=== PATIENT | female | born 1965 | race Caucasian/White ===

== ENCOUNTER 2021-01-17 22:12 | Emergency (ER) | payer OTHER, SELFPAY ==
[2021-01-17 22:44] VITALS: BP 154/99; PULSE 91; RESP 18; TEMP 36.7; O2SAT 98; BMI 32.9
--- NOTE | 2021-01-17 22:53 | CT_ITS ---
PROCEDURE INFORMATION: Exam: CT Thoracic Spine Without Contrast Exam date and time: 01/17/21 10:53 PM Age: 55 years old Clinical indication: Patient HX: Numbness and tingling down left leg, no known injury TECHNIQUE: Imaging protocol: Computed tomography images of the thoracic spine without contrast. Radiation optimization: All CT scans at this facility use at least one of these dose optimization techniques: automated exposure control; mA and/or kV adjustment per patient size (includes targeted exams where dose is matched to clinical indication); or iterative reconstruction. COMPARISON: No relevant prior studies available. FINDINGS: Vertebrae: No acute fracture. Normal alignment. Discs/Spinal canal/Neural foramina: No significant disc protrusion. No severe spinal canal stenosis. No significant neural foraminal narrowing. Soft tissues: Unremarkable. IMPRESSION: Unremarkable CT Spine.
--- NOTE | 2021-01-17 22:53 | CT_ITS ---
PROCEDURE INFORMATION: Exam: CT Lumbar Spine Without Contrast Exam date and time: 01/17/21 10:53 PM Age: 55 years old Clinical indication: Patient HX: Numbness and tingling down left leg, no known injury TECHNIQUE: Imaging protocol: Computed tomography images of the lumbar spine without contrast. Radiation optimization: All CT scans at this facility use at least one of these dose optimization techniques: automated exposure control; mA and/or kV adjustment per patient size (includes targeted exams where dose is matched to clinical indication); or iterative reconstruction. COMPARISON: CT THORACIC SPINE WO CON 01/17/21 11:21 PM FINDINGS: Vertebrae: No acute fracture. Normal alignment. L1-L2: No significant disc protrusion. No severe spinal canal stenosis. No significant neural foraminal narrowing. L2-L3: No significant disc protrusion. No severe spinal canal stenosis. No significant neural foraminal narrowing. L3-L4: No significant disc protrusion. No severe spinal canal stenosis. No significant neural foraminal narrowing. L4-L5: No significant disc protrusion. No severe spinal canal stenosis. No significant neural foraminal narrowing. L5-S1: No significant disc protrusion. No severe spinal canal stenosis. No significant neural foraminal narrowing. Soft tissues: Unremarkable. IMPRESSION: Unremarkable spine.
[2021-01-17 23:17] LABS: Basophils # 0.1 K/mm3 (0-0.2); Basophils % 1.3 % (0.1-2.0); Eosinophils # 0.2 K/mm3 (0.0-0.4); Eosinophils % 2.3 % (0.1-12.0); Hematocrit 38.4 % (37.0-47.0); Hemoglobin 13.1 g/dL (12.2-16.2); Lymphocytes # 1.8 K/mm3 (0.7-4.5); Lymphocytes % 24.2 % (10-50); Mean Corpuscular HGB Conc 34.2 g/dL (31.8-35.4); Mean Corpuscular Hemoglobin 30.8 pg (27.0-31.2); Mean Corpuscular Volume 90.2 fl (81-99); Mean Platelet Volume 7.2 fl (7.4-10.4); Monocytes # 0.2 K/mm3 (0.1-1.0); Monocytes % 3.2 % (1.7-9.3); Neutrophils % 68.9 % (37.0-80.0); Platelet Count 328 K/mm3 (142-424); Red Blood Count 4.26 M/mm3 (4.20-5.40); Red Cell Distribution Width 13.5 % (11.5-17.5); White Blood Count 7.2 K/mm3 (4.8-10.8)
[2021-01-17 23:24] LABS: Alanine Aminotransferase 36 U/L (12-78); Albumin Level 4.7 g/dl (3.5-5.0); Albumin/Globulin Ratio 1.6 (1.1-1.8); Alkaline Phosphatase 89 U/L (38-126); Anion Gap 13.9 mEq/L (5-15); Aspartate Amino Transferase 26 U/L (14-36); Bilirubin,Total 0.3 mg/dl (0.2-1.3); Blood Urea Nitrogen 19 mg/dl (7-17); Calcium 9.3 mg/dl (8.4-10.2); Carbon Dioxide 28 mmol/L (22.0-30.0); Chloride 105 mmol/L (98-107); Creatinine Clearance Estimated 118 mL/min (50-200); Estimated Glomerular Filt Rate 87 ml/min (>60); GFR (African American) 106 ML/MIN (>60); Globulin 2.9 g/dL (1.3-3.2); Glucose 73 mg/dl (74-100); Potassium 3.9 mmoL/L (3.5-5.1); Sodium 143 mmol/L (136-145); Total Protein,Serum 7.6 g/dl (6.3-8.2)
--- NOTE | 2021-01-18 00:20 | HMH.EDBACK ---
ED Disposition Clinical Impression: Lumbar radiculopathy Disposition: Home, Self-Care Condition on Discharge: Good Instructions: DI for Back Pain With Sciatica Additional Instructions: use meds and see pcp for fahad neil Prescriptions: predniSONE [Prednisone 20mg Tab] 20 mg PO BID #10 tab Transmission Status: Pending to [facility] Ketorolac Tromethamine [Toradol 10mg tablet] 10 mg PO Q6HP PRN #8 tab MDD 40mg/day PRN Reason: Moderate To Severe Pain Transmission Status: Pending to [facility] Referrals: Provider,Referral, [Primary Care Provider] - - Critical Care Critical Care Time: No Attestation: On 01/17/21, the high probability of a clinically significant, sudden or life threatening deterioration of the following system(s) required my full and direct attention, intervention and personal management. The time I documented below is in addition to time spent performing reported procedures but includes the following listed in this critical care notation. Medical Decision Making - Medical Records Medical records reviewed: Yes: I reviewed the patient's medical records. - Marck Inquiry Pt receiving controlled substance: No Vital Signs: 01/17/21 22:44 Temperature 98.0 F Temperature Source Oral Pulse Rate [Right Brachial] 91 H Respiratory Rate 18 Blood Pressure [Right Arm] 154/99 H Blood Pressure Mean [Right Arm] 117 Blood Pressure Source [Right Arm] Automatic Cuff Blood Pressure Position [Right Arm] Sitting 02 Sat by Pulse Oximetry 98 Oxygen Delivery Method Room Air - Lab Data Lab results reviewed: Yes: I reviewed the patient's lab results. Lab Results 01/17/21 23:05: WBC 7.2, RBC 4.26, Hgb 13.1, Hct 38.4, MCV 90.2, MCH 30.8, MCHC 34.2, RDW 13.5, Plt Count 328, MPV 7.2 L, Neut % (Auto) 68.9, Lymph % (Auto) 24.2, [place] % (Auto) 3.2, Eos % (Auto) 2.3, Baso % (Auto) 1.3, Neut # (Auto) 5.0, Lymph # (Auto) 1.8, [place] # (Auto) 0.2, Eos # (Auto) 0.2, Baso # (Auto) 0.1 01/17/21 23:05: Sodium 143, Potassium 3.9, Chloride 105, Carbon Dioxide 28, Anion Gap 13.9, BUN 19 H, Creatinine 0.70, Estimated Creat Clear 118, Estimated GFR 87, Est GFR ( Amer) 106, Glucose 73 L, Calcium 9.3, Total Bilirubin 0.3, AST 26, ALT 36, Alkaline Phosphatase 89, Total Protein 7.6, Albumin 4.7, Globulin 2.9, Albumin/Globulin Ratio 1.6 Result diagrams: 01/17/21 23:05 01/17/21 23:05 - CT Data CT Scan: T-Spine, L-Spine Time Received: 00:[address] Reviewed: Yes: I have viewed the radiologist's interpretation Preliminary Findings: Normal/NAD, No Fracture Seen Medical Decision Narrative: has lt lumbar radicular pain and will start meds and refer to pcp Back Pain HPI - General Chief Complaint: Back Pain/Injury Stated Complaint: back pain Time Seen by Provider: 01/18/21 00:00 Mode of Arrival: Family Vehicle Source of Information: Patient, Medical Record Limitations: No Limitations Description of Symptoms (Recalled from ER Triage Doc. by RN): left lateral lumbar pain, radiating into left hip and down through left leg. patient states its been going on for a couple of days and progressively worsening despiite tylenol and motrin admin. vss. further states leg is tingling in that leg. - History of Present Illness HPI Narrative: lt lumbar pain rad to lt leg with no fever/rash or trauma over the last few days - no cauda equina sx - MD Complaint: back pain Onset (ago): day(s) Similar Symptoms Previously: Yes Location: lumbar spine Severity: moderate Radiation: left leg Associated symptoms: denies other symptoms - Related Data Previous Rx's Medication Instructions Recorded Ketorolac Tromethamine [Toradol 10 mg PO Q6HP PRN #8 tab MDD 01/18/21 10mg tablet] 40mg/day predniSONE [Prednisone 20mg 20 mg PO BID #10 tab 01/18/21 Tab] Allergies Allergy/AdvReac Type Severity Reaction Status Date / Time No Known Allergies Allergy Verified 01/17/21 22:52 [facility] History
[2021-01-18 00:47] VITALS: BP 133/83; PULSE 86; RESP 18; TEMP 36.7; O2SAT 98
== END 2021-01-18 01:02 | disposition home or self-care (01) ==
PROVIDERS: Emergency Provider Emergency Medicine
DX: M54.16 Radiculopathy, lumbar region (principal)
CPT/HCPCS: 72128; 72131; 80053; 85025; 96374; 96375; 99282; 99283

== ENCOUNTER 2022-05-06 21:51 | Emergency (ER) | payer OTHER, SELFPAY ==
[2022-05-06 21:52] VITALS: BP 139/53; PULSE 96; RESP 20; TEMP 36.6; O2SAT 99; BMI 32.9
--- NOTE | 2022-05-06 21:56 | ECG_ITS ---
APPROVED REPORT Exam: Resting ECG HR:89 bpm ECG Measurements Heart Rate 89 AXES MD 146 P 64 QRSd 75 QRS 46 QT 379 T -3 QTc 426 Conclusion SINUS RHYTHM POSSIBLE RIGHT VENTRICULAR CONDUCTION DELAY [RSR (QR) IN V1/V2] Late R wave progression BORDERLINE ECG UNCONFIRMED REPORT Electronically signed by : Emmanuel Frankel MD 05/07/2022 12:13:46
--- NOTE | 2022-05-06 21:58 | XR_ITS ---
PROCEDURE INFORMATION: Exam: XR Chest Exam date and time: 05/06/2022 10:17 PM Age: 57 years old Clinical indication: Sternal or substernal pain; Additional info: Chest pain TECHNIQUE: Imaging protocol: Radiologic exam of the chest. Views: 1 view. COMPARISON: CT THORACIC SPINE WO CON 01/17/2021 11:21 PM FINDINGS: Lungs: Posterior segment right lower lobe infiltrate. Lingular infiltrate. Pleural spaces: Unremarkable. No pleural effusion. No pneumothorax. Heart/Mediastinum: Unremarkable. No cardiomegaly. Bones/joints: Unremarkable. IMPRESSION: 1. Posterior segment right lower lobe infiltrate. 2. Lingular infiltrate.
--- NOTE | 2022-05-06 22:07 | PC.NURSE ---
RAD at for CXR
--- NOTE | 2022-05-06 22:07 | HMH.EDGENADL ---
Discharge Plan Disposition Patient Disposition: Home, Self-Care Condition: Good Prescriptions Prescriptions: New amoxicillin-pot clavulanate 875-125 mg tablet 1 tab PO BID 7 Days Qty: 14 0RF doxycycline hyclate 100 mg tablet 100 mg PO BID 7 Days Qty: 14 0RF Referrals Follow up/Referrals: Provider,Referral, [Primary Care Provider] - See instructions Clinical Impressions Clinical Impression: Pneumonia Instructions Patient Instructions: DI for Pneumonia -- Adult Discharge ED Provider: Crow Gonzalez General Adult HPI General Chief complaint: PAIN Stated complaint: SOA AND BACK PAIN Time Seen by Provider: 05/06/22 21:51 Mode of Arrival: Ambulatory Limitations: No Limitations Description of Symptoms (Recalled from ER Triage Doc. by RN): Pt states she has been sick for a few days w/ productive cough, soa, and pain on inspiration. She says sputum is green in color. She does not appear in acute distress and O2 sat is 99% on room air. She denies fevers, N/V/D, chest pain, or weakness. History of Present Illness HPI narrative: Patient is a 57-year-old female with no pertinent past medical history who presents with concern for shortness of breath, chest/back pain. She says that for the last couple of days she has been sick . She says that she has had a productive cough which is abnormal for her. She is a smoker but has never been diagnosed with COPD. She states that every time she takes a deep breath she has pain on the left posterior side of her chest wall. The sputum is green. She says that the pain is there now constantly so she went to come in for evaluation. No nausea or vomiting. No diaphoresis. She says that she has had a cough during this time as well. She says that she does have a little bit of abdominal pain particularly in her epigastrium. Related Data Previous Rx's Medication Instructions Recorded amoxicillin 875 mg-potassium 1 tab PO BID 7 days #14 tabs 05/06/22 clavulanate 125 mg tablet doxycycline hyclate 100 mg tablet 100 mg PO BID 7 days #14 tabs 05/06/22 Allergies Allergy/AdvReac Type Severity Reaction Status Date / Time No Known Allergies Allergy Verified 01/17/21 22:52 PFSH PFSH Social History Smoking Status: Current every day smoker alcohol intake: current current occupational status: other Travel in the last 8 weeks: None ROS Obtained: Yes All systems reviewed & no additional complaints except as documented A 14 point review system was obtained and otherwise negative except per HPI Physical Exam General General appearance: alert and in no apparent distress Head Head exam: atraumatic, normocephalic and normal inspection Eye Eye exam: Present normal appearance, PERRL and EOMI ENT ENT exam: Present normal exam, normal oropharynx, mucous membranes moist, TM's normal bilaterally and normal external ear exam Neck Neck exam: Present normal inspection, full ROM and trachea midline; Absent meningismus or lymphadenopathy Chest Chest inspection: Present normal inspection and symmetric chest wall rise; Absent tenderness Respiratory Respiratory exam: Present normal lung sounds bilaterally; Absent respiratory distress Cardiovascular Cardiovascular exam: Present regular rate and normal rhythm; Absent JVD Abdominal Exam Abdominal exam: Present soft and normal bowel sounds; Absent distention, tenderness or guarding Extremities Exam Extremities exam: Present normal inspection, full ROM and normal capillary refill; Absent calf tenderness Back Exam Back exam: Present normal inspection; Absent tenderness Neurological Exam Neurological exam: Present alert and oriented X3 Psychiatric Psychiatric exam: Present normal affect and normal mood Skin Skin exam: Present warm, dry, intact and normal color Lymphatic Lymphatic Findings: no adenopathy Medical Decision Making Medical Records Medical records reviewed: Yes I reviewed the patient's medical records. Marck
[2022-05-06 22:09] LABS: Basophils # 0.4 K/mm3 (0-0.2); Basophils % 4.1 % (0.1-2.0); Eosinophils # 0.3 K/mm3 (0.0-0.4); Eosinophils % 3.6 % (0.1-12.0); Hematocrit 39.5 % (37.0-47.0); Hemoglobin 12.7 g/dL (12.2-16.2); Lymphocytes # 1.7 K/mm3 (0.7-4.5); Lymphocytes % 20.3 % (10-50); Mean Corpuscular Hemoglobin 29.9 pg (27.0-31.2); Mean Corpuscular Volume 93.3 fl (81-99); Mean Platelet Volume 7.3 fl (7.4-10.4); Monocytes # 0.4 K/mm3 (0.1-1.0); Monocytes % 4.8 % (1.7-9.3); Neutrophils # 6.1 K/mm3 (1.8-7.8); Neutrophils % 71.4 % (37.0-80.0); Platelet Count 514 K/mm3 (142-424); Red Blood Count 4.24 M/mm3 (4.20-5.40); Red Cell Distribution Width 13.3 % (11.5-17.5); White Blood Count 8.5 K/mm3 (4.8-10.8)
[2022-05-06 22:14] LABS: Alanine Aminotransferase 163 U/L (12-78); Albumin Level 3.7 g/dl (3.5-5.0); Albumin/Globulin Ratio 1.2 (1.1-1.8); Alkaline Phosphatase 211 U/L (38-126); Anion Gap 12.3 mEq/L (5-15); Aspartate Amino Transferase 98 U/L (14-36); Bilirubin,Total 0.2 mg/dl (0.2-1.3); Blood Urea Nitrogen 17 mg/dl (7-17); Calcium 8.8 mg/dl (8.4-10.2); Carbon Dioxide 34 mmol/L (22.0-30.0); Chloride 96 mmol/L (98-107); Creatinine Clearance Estimated 101 mL/min (50-200); Estimated Glomerular Filt Rate 74 ml/min (>60); GFR (African American) 90 ML/MIN (>60); Globulin 3.2 g/dL (1.3-3.2); Glucose 93 mg/dl (74-100); Lipase 73 U/L (23-300); Potassium 4.3 mmoL/L (3.5-5.1); Sodium 138 mmol/L (136-145); Total Protein,Serum 6.9 g/dl (6.3-8.2)
[2022-05-06 22:18] LABS: Coronavirus 19, PCR Not Detected (NotDetected); Influenza A, PCR Not Detected (NotDetected); Influenza B, PCR Not Detected (NotDetected)
[2022-05-06 22:18] LABS: D-Dimer 1.15 ug/mL (0.0-0.5)
[2022-05-06 22:21] LABS: C-Reactive Protein 73.1 mg/L (0-4)
[2022-05-06 22:39] LABS: Troponin I < 0.01 ng/ml (0.00-0.034)
--- NOTE | 2022-05-06 22:42 | CT_ITS ---
PROCEDURE INFORMATION: Exam: CTA Chest With Contrast Exam date and time: 05/06/2022 10:55 PM Age: 57 years old Clinical indication: Sternal or substernal pain; Additional info: Elevated d-dimer chest pain RO pe TECHNIQUE: Imaging protocol: Computed tomographic angiography of the chest with contrast. 3D rendering (Not supervised by radiologist): MIP and/or 3D reconstructed images were created by the technologist. Radiation optimization: All CT scans at this facility use at least one of these dose optimization techniques: automated exposure control; mA and/or kV adjustment per patient size (includes targeted exams where dose is matched to clinical indication); or iterative reconstruction. Contrast material: ISOVUE 370; Contrast volume: 70 ml; Contrast route: INTRAVENOUS (IV); COMPARISON: CR XR CHEST PORTABLE 05/06/2022 10:17 PM FINDINGS: Pulmonary arteries: No CT evidence of pulmonary embolus. Aorta: Unremarkable. No aortic aneurysm. No aortic dissection. Lungs: Left lower lobe infiltrate, most prominent in the superior and posterior segments. Pleural spaces: Unremarkable. No pneumothorax. No pleural effusion. Heart: Unremarkable. No cardiomegaly. No pericardial effusion. Lymph nodes: Unremarkable. No enlarged lymph nodes. Bones/joints: Unremarkable. No acute fracture. Soft tissues: Unremarkable. IMPRESSION: 1. Left lower lobe infiltrate, most prominent in the superior and posterior segments. 2. No CT evidence of pulmonary embolus.
[2022-05-06 23:57] VITALS: BP 114/64; PULSE 72; RESP 18; TEMP 36.8; O2SAT 98
== END 2022-05-07 | disposition home or self-care (01) ==
PROVIDERS: Emergency Provider Student in an Organized Health Care Education/Training Program
DX: J18.9 Pneumonia, unspecified organism (principal); Z72.0 Tobacco use
CPT/HCPCS: 71045; 71275; 80053; 83690; 84484; 85025; 85378; 86140; 93005; 96365; 96367; 96375; 99285; C9803; J0696; J2405; Q9967; U0003; U0005

== ENCOUNTER 2024-01-02 18:00 | Outpatient (CLI) | payer OTHER, SELFPAY ==
[2024-01-02 19:28] LABS: Basophils # 0.1 K/mm3 (0-0.2); Basophils % 0.9 % (0.1-2.0); Eosinophils # 0.2 K/mm3 (0.0-0.4); Eosinophils % 2.6 % (0.1-12.0); Hematocrit 41.4 % (37.0-47.0); Hemoglobin 13.2 g/dL (12.2-16.2); Lymphocytes # 1.4 K/mm3 (0.7-4.5); Lymphocytes % 15.8 % (10-50); Mean Corpuscular HGB Conc 31.8 g/dL (31.8-35.4); Mean Corpuscular Hemoglobin 30.4 pg (27.0-31.2); Mean Corpuscular Volume 95.5 fl (81-99); Mean Platelet Volume 8.6 fl (7.4-10.4); Monocytes # 0.4 K/mm3 (0.1-1.0); Monocytes % 4.8 % (1.7-9.3); Neutrophils # 6.9 K/mm3 (1.8-7.8); Platelet Count 398 K/mm3 (142-424); Red Blood Count 4.34 M/mm3 (4.20-5.40); Red Cell Distribution Width 15.3 % (11.5-17.5)
[2024-01-02 19:31] LABS: Alanine Aminotransferase 54 U/L (12-78); Albumin Level 4.4 g/dl (3.5-5.0); Albumin/Globulin Ratio 1.6 (1.1-1.8); Alkaline Phosphatase 121 U/L (38-126); Anion Gap 14.2 mEq/L (5-15); Aspartate Amino Transferase 44 U/L (14-36); Bilirubin,Total 0.4 mg/dl (0.2-1.3); Blood Urea Nitrogen 18 mg/dl (7-17); Calcium 9.6 mg/dl (8.4-10.2); Carbon Dioxide 30 mmol/L (22.0-30.0); Chloride 99 mmol/L (98-107); Chol/HDL Ratio 4.4 (1-3.5); Cholesterol 235 mg/dl (140-200); Estimated Glomerular Filt Rate 65 ml/min (>60); GFR (African American) 78 ML/MIN (>60); Globulin 2.8 g/dL (1.3-3.2); Glucose 93 mg/dl (74-100); HDL Cholesterol 54 mg/dl (40-60); Potassium 4.2 mmoL/L (3.5-5.1); Sodium 139 mmol/L (136-145); Total Protein,Serum 7.2 g/dl (6.3-8.2); Triglycerides 86 mg/dl (30-150); VLDL Cholesterol 17 mg/dL (0-40)
[2024-01-02 19:43] LABS: Direct LDL Cholesterol 150.11 mg/dL (100-129)
[2024-01-02 19:48] LABS: 25-OH Vitamin D, Total 36.3 ng/mL (30-100)
[2024-01-02 20:01] LABS: Thyroid Stimulating Hormone 1.44 uIU/mL (0.465-4.68)
[2024-01-02 20:04] LABS: Hemoglobin A1C 5.7 % (4.0-6.0)
[2024-01-03 14:10] LABS: HIV (1&2) Antibody Rapid NONREACTIVE
[2024-01-04 10:41] LABS: HCV Ab Non Reactive (Non Reactive)
== END 2024-01-02 23:59 | disposition home or self-care (01) ==
LOC: LAB.DROPOF 01-03 10:14
PROVIDERS: PCP Nurse Practitioner Family; Visit Provider Nurse Practitioner Family
DX: R53.83 Other fatigue (principal); R06.09 Other forms of dyspnea; F17.210 Nicotine dependence, cigarettes, uncomplicated; E78.00 Pure hypercholesterolemia, unspecified; R74.01 Elevation of levels of liver transaminase levels; R79.89 Other specified abnormal findings of blood chemistry; E66.9 Obesity, unspecified; Z68.39 Body mass index [BMI] 39.0-39.9, adult; Z79.899 Other long term (current) drug therapy
CPT/HCPCS: 80053; 80061; 82306; 83036; 84443; 85025

== ENCOUNTER 2024-04-20 17:07 | Emergency (ER) | payer OTHER, SELFPAY ==
[2024-04-20 17:24] VITALS: BP 145/75; PULSE 103; RESP 20; TEMP 37; O2SAT 93; BMI 36.6
[2024-04-20 17:30] VITALS: RESP 22; O2SAT 96
--- NOTE | 2024-04-20 18:34 | EXP.UTC ---
Discharge Plan Disposition Patient Disposition: Home, Self-Care Condition: Good Prescriptions Prescriptions: New azithromycin 250 mg tablet See Rx Instructions .ROUTE .COMPLEX Qty: 6 0RF Rx Instructions: For 250 mg dose pack: take 500 mg today (day 1), then 250 mg for 4 days (days 2-5) methylprednisolone [Medrol (Juancho)] 4 mg tablets,dose pack See Rx Instructions .ROUTE .COMPLEX 6 Days Qty: 21 0RF Rx Instructions: 4 mg orally ;Medrol dose taper juancho No Action buprenorphine-naloxone 8-2 mg tablet, sublingual sublingual albuterol sulfate [Ventolin HFA] 90 mcg/actuation HFA aerosol inhaler 2 inh inhalation QID PRN (Reason: shortness of breath or wheezing) 90 Days Qty: 8.5 3RF nicotine 14 mg/24 hr patch 24 hour 1 patch transdermal DAILY Qty: 28 2RF nicotine (polacrilex) 2 mg gum 2 mg buccal Q4H PRN (Reason: nicotine cravings) Qty: 100 0RF Referrals Follow up/Referrals: Sadi Blackwood APRN [Primary Care Provider] - See instructions Activity Restrictions/Add. Instructions Additional Instructions/Restrictions: Take medication as prescribed. Increase fluids and rest. Follow up with primary care next week. IF you become short of air, return to the ER. Clinical Impressions Clinical Impression: COPD exacerbation Instructions Patient Instructions: COPD: When to Call for Help, DI for Chronic Obstructive Pulmonary Disease Print Language Print Language: Kazakh Discharge ED Provider: Tessy Mcnulty [facility] HPI General Stated complaint: Congested,SOA,cough Mode of Arrival: Ambulatory Source of Information: Patient Time Seen by Provider: 04/20/24 18:27 Description of Symptoms (Recalled from Triage Doc. by RN): HX OF COPD, CONGESTED, COUGHING UP DRAINAGE, SOB HEENT Symptoms (Recalled from RN notes): Yes Resp Symptoms (Recalled from RN notes): Yes Skin Symptoms (Recalled from RN notes): No MS Symptoms (Recalled from RN notes): No Functional Status (Recalled from RN notes): WNL History of Present Illness Provider Complaint: Pt reports that she has been coughing up green mucous. She states that she has COPD and feels like she is having an exacerbation. She reports taking Mucinex for her symptoms. Related Data Home Medications ?Medication ?Instructions ?Recorded ?Confirmed buprenorphine 8 mg-naloxone 2 mg tab sublingual 01/02/24 04/04/24 sublingual tablet Previous Rx's ?Medication ?Instructions ?Recorded albuterol sulfate 90 mcg/actuation 2 inh inhalation QID PRN shortness 04/04/24 aerosol inhaler (Ventolin HFA) of breath or wheezing 90 days #8.5 grams nicotine (polacrilex) 2 mg gum 2 mg buccal Q4H PRN nicotine 04/04/24 cravings #100 ea nicotine 14 mg/24 hr daily 1 patch transdermal DAILY #28 ea 04/04/24 transdermal patch azithromycin 250 mg tablet See Rx Instructions PO .COMPLEX #6 04/20/24 tabs methylprednisolone 4 mg tablets in See Rx Instructions .Route 04/20/24 a dose pack (Medrol (Juancho)) .COMPLEX 6 days #21 tabs Allergies Allergy/AdvReac Type Severity Reaction Status Date / Time No Known Allergies Allergy Verified 04/04/24 15:28 Worker's Comp Is this a Worker's Comp case?: No [facility] Disclaimer: The information contained in this section may have been updated after the patient was seen, as this information can be updated by other users. Medical History (Updated 04/20/24 @ 18:48 by Tessy Mcnulty APRN) Encounter for screening for malignant neoplasm of lung Tobacco abuse Smoking greater than 30 pack years History of COPD Chronic obstructive pulmonary disease Substance abuse Surgical History History of cholecystectomy Family History Other Cancer Social History Smoking Status: Current every day smoker alcohol intake: current substance use type: former substance user, opiates and painkillers current occupational status: other Travel in the last 8 weeks: None ROS Obtained: Yes All systems reviewed & no additional complaints except as documented Constitutional Constitutional: Reports system reviewed and no additional complaints, except as documented, Reports headache(s) and Reports malaise Eyes Eyes: Reports system reviewed and no additional complaints, except as documented ENT Ears, Nose, Mouth, and Throat: Reports system reviewed and no additional complaints, except as documented and Reports headache(s) Cardiovascular Cardiovascular: Reports system reviewed and no additional complaints, except as documented Respiratory Respiratory: Reports system reviewed and no additional complaints, except as documented, Reports shortness of breath, Reports change in phlegm color and Reports wheezing Gastrointestinal Gastrointestingal: Reports system reviewed and no additional complaints, except as documented Genitourinary Female Genitourinary: Reports system reviewed and no additional complaints, except as documented Musculoskeletal Musculoskeletal: Reports system reviewed and no additional complaints, except as documented Integumentary/Breasts Skin/Breast: Reports system reviewed and no additional complaints, except as documented Neurologic Neurologic: Reports system reviewed and no additional complaints, except as documented and Reports headache(s) Endocrine Endocrine: Reports system reviewed and no additional complaints, except as documented Hematologic/Lymphatic Henatologic/Lymphatic: Reports system reviewed and no additional complaints, except as documented Allergic/Immunologic Allergic/Immunologic: Reports system reviewed and no additional complaints, except as documented and Reports wheezing Physical Exam General General appearance: alert and in no apparent distress Head Head exam: atraumatic and normocephalic Eye Eye exam: Present normal appearance ENT ENT exam: Present normal exam, normal oropharynx and mucous membranes moist Neck Neck exam: Present normal inspection Chest Chest inspection: Present normal inspection and symmetric chest wall rise Respiratory Respiratory exam: Present other (course sounds throughout. ) Expanded Respiratory Exam Location: Left: rhonchi, Right: rhonchi and Lower: rhonchi Cardiovascular Cardiovascular exam: Present regular rate, normal rhythm and normal heart sounds Abdominal Exam Abdominal exam: Present soft Extremities Exam Extremities exam: Present normal inspection Back Exam Back exam: Present normal inspection Neurological Exam Neurological exam: Present alert and oriented X3 Psychiatric Psychiatric exam: Present normal affect and normal mood Skin Skin exam: Present warm, dry and intact Lymphatic Lymphatic Findings: no adenopathy Medical Decision Making Medical Records Screening: Per USPSTF and CDC recommendations, given the prevalence of disease in our region, it is our hospital?s policy to screen for HIV and viral Hepatitis for all patients aged 18 and over and those with ongoing risk factors. Marck Inquiry Pt receiving controlled substance: No Marck was queried for this patient: No Vital Signs: 04/20/24 17:24 04/20/24 17:30 Temperature 98.6 F Temperature Source Oral Pulse Rate [Left Radial] 103 H Respiratory Rate 20 22 Blood Pressure [Left Arm] 145/75 H Blood Pressure Mean [Left Arm] 98 02 Sat by Pulse Oximetry 93 L 96
[2024-04-20 18:49] VITALS: BP 145/75; PULSE 103; RESP 22; TEMP 37
== END 2024-04-20 18:50 | disposition home or self-care (01) ==
PROVIDERS: Emergency Provider Nurse Practitioner Family; PCP Nurse Practitioner Family
DX: J44.1 Chronic obstructive pulmonary disease with (acute) exacerbation (principal)
CPT/HCPCS: 99212; G0381

== ENCOUNTER 2024-05-23 14:32 | Outpatient (CLI) | payer OTHER, SELFPAY ==
--- NOTE | 2024-05-23 14:36 | CT_ITS ---
FINAL REPORT TECHNIQUE: Thin section axial images were obtained from the lung apices to the upper abdomen by computed tomography. Reformatted images were obtained and reviewed. This study was performed with techniques to keep radiation doses al low as reasonably achievable (ALARA). Individualized dose reduction techniques using automated exposure control or adjustment of mA and/or kV according to the patient's size were employed. CLINICAL HISTORY: .screening current smoker 1/2 ppd x40 years COMPARISON: CTA of the chest 05/06/2022 FINDINGS: CHEST CT LOW DOSE 59-year-old female, current smoker, [id number] history. CTDI vol (mGy): 2.9 DLP (mGy-cm): 102.12 There is no axillary adenopathy. There is no mediastinal or hilar mass or adenopathy. The heart is normal in size. There is no pericardial or pleural effusion. Lung window images demonstrate no suspicious infiltrate or nodule. Limited images of the upper abdomen demonstrate evidence of a prior cholecystectomy.. IMPRESSION: Lung-RADS category 1. Recommend 12 month follow up low dose chest CT. Reviewed, Interpreted and Dictated by Isaac Hensley III, MD Transcribed by April Morris Authenticated and [facility]
--- NOTE | 2024-05-24 07:23 | PC.NURSE ---
Patient left after her CT scan. Tried multiple times to call patient but phone did not have voicemail.
== END 2024-05-23 23:59 | disposition home or self-care (01) ==
LOC: RAD 14:34
PROVIDERS: PCP Nurse Practitioner Family; Visit Provider Internal Medicine Pulmonary Disease
DX: F17.210 Nicotine dependence, cigarettes, uncomplicated (principal)
CPT/HCPCS: 71271

== ENCOUNTER 2024-12-05 15:01 | Emergency (ER) | payer OTHER, SELFPAY ==
[2024-12-05 15:37] VITALS: BP 136/75; PULSE 96; RESP 20; TEMP 36.9; O2SAT 97; BMI 36.6
--- NOTE | 2024-12-05 15:58 | XR_ITS ---
PROCEDURE INFORMATION: Exam: XR Chest Exam date and time: 12/05/2024 4:09 PM Age: 59 years old Clinical indication: Wheezing; Cough, smoker; Additional info: Rll inspiratory wheeing posteriorly TECHNIQUE: Imaging protocol: Radiologic exam of the chest. Views: 2 views. COMPARISON: CT LUNG SCREENING 05/23/2024 2:55 PM FINDINGS: Airway: Airways are patent. Lungs: Lungs are clear. Pleural spaces: No pleural effusions or pneumothorax. Heart/Mediastinum: No cardiomegaly. Vasculature: Calcified aortic knob. Bones/joints: No acute skeletal abnormality or aggressive osseous lesion. IMPRESSION: No acute findings.
--- NOTE | 2024-12-05 16:08 | ED_ITS ---
Discharge Plan Disposition Patient Disposition: Home, Self-Care Prescriptions Prescriptions: New doxycycline hyclate 100 mg capsule 100 mg PO BID 5 Days Qty: 10 0RF prednisone 20 mg tablet 40 mg PO DAILY 5 Days Qty: 10 0RF tiotropium bromide 18 mcg capsule, w/inhalation device 1 cap inhalation DAILY Qty: 30 4RF Rx Instructions: puncture 1 cap using device; one dose = 2 inhalations No Action buprenorphine-naloxone 8-2 mg tablet, sublingual sublingual albuterol sulfate [Ventolin HFA] 90 mcg/actuation HFA aerosol inhaler 2 inh inhalation QID PRN (Reason: shortness of breath or wheezing) 90 Days Qty: 8.5 3RF nicotine 14 mg/24 hr patch 24 hour 1 patch transdermal DAILY Qty: 28 2RF nicotine (polacrilex) 2 mg gum 2 mg buccal Q4H PRN (Reason: nicotine cravings) Qty: 100 0RF azithromycin 250 mg tablet See Rx Instructions .ROUTE .COMPLEX Qty: 6 0RF Rx Instructions: For 250 mg dose pack: take 500 mg today (day 1), then 250 mg for 4 days (days 2-5) methylprednisolone [Medrol (Juancho)] 4 mg tablets,dose pack See Rx Instructions .ROUTE .COMPLEX 6 Days Qty: 21 0RF Rx Instructions: 4 mg orally ;Medrol dose taper juancho Referrals Follow up/Referrals: Sadi Blackwood APRN [Primary Care Provider] - See instructions Activity Restrictions/Add. Instructions Additional Instructions/Restrictions: Call your family doctor to establish care for this visit to the emergency department and schedule follow-up within 48 hours to ensure improvement. If you have any worsening of your condition or any other concerning signs or symptoms, return to the emergency department or your primary care doctor for further evaluation. While taking doxycycline, limit sunlight exposure. It can cause severe sunburns even if you do not typically get sunburn. Be sure to wear hats, long sleeves, sunscreen if you are out in the sun for prolonged periods of time while taking doxycycline. Tiotropium daily to help control symptoms. Call Dr. Lindsey office in order to schedule follow-up for your COPD. Clinical Impressions Clinical Impression: COPD exacerbation Print Language Print Language: Turkish Discharge ED Provider: Deshawn Ansari General Adult HPI General Chief complaint: Upper Respiratory Infection Stated complaint: congestion, sinus drainage Time Seen by Provider: 12/05/24 15:31 Mode of Arrival: Ambulatory Source of Information: Patient Description of Symptoms (Recalled from ER Triage Doc. by RN): PT REPORTS INCREASED CONGESTION,SNOTTY NOSE,COUGHING UP GREEN STUFF. STATES SHE HAS COPD AND WAS CLEANING A HOUSE LAST WEEK AND FEELS THE DUST HAS AGGRAVATED HER COPD History of Present Illness HPI narrative: Please note that above description of symptoms, in this electronic medical record under categorization of recalled from ER triage doctor by RN are reflective of an initial nursing assessment, however, is not reflective of my full history and physical exam that was personally taken and clarified. Consequentially, this preceding description of symptoms, which may include the patient's categorized chief complaint in the EMR, do not reflect my personal clinical impression, and the ultimate description of history of present illness and patient stated complaints should be deferred to this section of the note. Unless stated otherwise or congruent with this section of the note, additional signs, symptoms, or incongruence should be interpreted as inaccurate with my clinical impression. Related Data Home Medications ?Medication ?Instructions ?Recorded ?Confirmed buprenorphine 8 mg-naloxone 2 mg tab sublingual 01/02/24 04/04/24 sublingual tablet Previous Rx's ?Medication ?Instructions ?Recorded albuterol sulfate 90 mcg/actuation 2 inh inhalation QID PRN shortness 04/04/24 aerosol inhaler (Ventolin HFA) of breath or wheezing 90 days #8.5 grams nicotine (polacrilex) 2 mg gum 2 mg buccal Q4H PRN nicotine 04/04/24 cravings #100 ea nicotine 14 mg/24 hr daily 1 patch transdermal DAILY #28 ea 04/04/24 transdermal patch azithromycin 250 mg tablet See Rx Instructions PO .COMPLEX #6 04/20/24 tabs methylprednisolone 4 mg tablets in See Rx Instructions .Route 04/20/24 a dose pack (Medrol (Juancho)) .COMPLEX 6 days #21 tabs doxycycline hyclate 100 mg capsule 100 mg PO BID 5 days #10 caps 12/05/24 prednisone 20 mg tablet 40 mg (2 x 20 mg) PO DAILY 5 days 12/05/24 #10 tabs tiotropium bromide 18 mcg capsule 1 cap inhalation DAILY #30 puffs 12/05/24 with inhalation device Allergies Allergy/AdvReac Type Severity Reaction Status Date / Time No Known Allergies Allergy Verified 04/04/24 15:28 [facility] Disclaimer: The information contained in this section may have been updated after the patient was seen, as this information can be updated by other users. Medical History (Updated 12/05/24 @ 17:29 by Deshawn Ansari MD) Encounter for screening for malignant neoplasm of lung Tobacco abuse Smoking greater than 30 pack years History of COPD Chronic obstructive pulmonary disease Substance abuse Surgical History History of cholecystectomy Family History Other Cancer Social History Smoking Status: Current every day smoker alcohol intake: current substance use type: former substance user, opiates and painkillers current occupational status: other Travel in the last 8 weeks?: None Have you lived/traveled outside US in past 30 days?: No Contact w/someone who lives/traveled outside US past 30 days?: No Exposure to someone with infectious disease in past 14 days?: No Do you have a fever (greater than 100.4 F or 38 C)?: No Have you tested positive for COVID-19?: No Exposed to someone with COVID-19 in past 14 days?: No Do you have a sore throat?: No Do you have a cough?: No Do you have any weakness?: No Do you have any diarrhea?: No Are you experiencing any unusual bleeding?: No Do you have any muscle aches/pain?: No Do you have any abdominal pain?: No Are you experiencing loss of taste or smell?: No Other Medical History Have you received the Flu Vaccine for this season: No Have you received the Pneumonia Vaccine: No ROS Obtained: Yes All systems reviewed & no additional complaints except as documented Physical Exam General General appearance: alert and in no apparent distress Head Head exam: atraumatic and normocephalic Eye Eye exam: Present normal appearance, PERRL and EOMI Neck Neck exam: Present normal inspection, full ROM and trachea midline Respiratory Respiratory exam: Present wheezes (Expiratory wheezes heard throughout lung rowley. Isolated inspiratory wheezes in right posterior inferior lung rowley) and prolonged expiratory phase; Absent respiratory distress, stridor or accessory muscle use Cardiovascular Cardiovascular exam: Present other (Pulses equal symmetric in upper and lower extremities) Abdominal Exam Abdominal exam: Present soft; Absent distention, tenderness or pulsatile mass Extremities Exam Extremities exam: Absent edema Neurological Exam Neurological exam: Present alert, oriented X3 and CN II-XII intact; Absent motor sensory deficit Skin Skin exam: Present warm and dry; Absent diaphoresis or erythema Medical Decision Making Medical Records Medical records reviewed: Yes I reviewed the patient's medical records. Screening: Per USPSTF and CDC recommendations, given the prevalence of disease in our region, it is our hospital?s policy to screen for HIV and viral Hepatitis for all patients aged 18 and over and those with ongoing risk factors. Marck Inquiry Pt receiving controlled substance: No Marck was queried for this patient: No Vital Signs: 12/05/24 15:37 Temperature 98.4 F Temperature Source Oral Pulse Rate [Right] 96 H Respiratory Rate 20 Blood Pressure [Right Arm] 136/75 Blood Pressure Mean [Right Arm] 95 02 Sat by Pulse Oximetry 97 Oxygen Delivery Method Room Air Orders (Tests/Meds): ED MEDICATIONS Discontinued Medications Generic Name Dose Route Start Last Admin Trade Name Freq PRN Reason Stop Dose Admin Albuterol/Ipratropium 9 ml 12/05/24 15:58 12/05/24 16:11 Ipratropium/Albuterol 3 Ml Neb IH 12/05/24 15:59 9 ml ONCE ONE Administration Dexamethasone 10 mg 12/05/24 15:58 12/05/24 16:10 Dexamethasone 4mg Tablet PO 12/05/24 15:59 10 mg ONCE ONE Administration Doxycycline Hyclate 100 mg 12/05/24 15:58 12/05/24 16:11 Doxycycline Hycl 100 Mg Tablet PO 12/05/24 15:59 100 mg ONCE ONE Administration ORDERS Category Date Time Status CXR 2 view (NOT portable) [XR chest 2V] Stat Exams 12/05/24 15:58 Completed Medical Decision Narrative: Is a 59-year-old female presenting with shortness of breath. She has a history of COPD only on as needed albuterol. States that she started feeling short of breath 2 days ago also coughing up green, thick sputum. No fevers or chills or vomiting, chest pain, lower extremity swelling, syncope, neurologic deficits, etc. History obtained with patient. She came in for further evaluation due to progressive worsening. History was obtained via conversation with patient. On arrival, patient hemodynamically stable, alert, oriented x4, appropriate, GCS 15, moving all extremities spontaneously, pupils equal and reactive to light. Full physical exam performed and significant for well-appearing female no acute distress. She speaking in full sentences, but does have prolonged expiratory phase and expiratory wheezes heard in all lung rowley. She does have isolated inspiratory wheezes in right posterior/inferior lung rowley. Nontachycardic. Differential includes COPD exacerbation, bronchitis, pneumonia, less likely pneumothorax, PE, dissection, among others. Patient placed on continuous cardiac monitoring and continuous pulse ox with initial blood pressure 136/75, heart rate 96, saturation 97% on room air. Patient was given DuoNebs, Decadron for symptomatic management and correction of underlying abnormalities. Workup independently interpreted and significant for no acute cardiopulmonary space disease on chest x-ray, just inflammation. On reevaluation, patient resting more comfortably after DuoNebs and steroids. Given patient presentation, workup, history, this most likely represents mild COPD exacerbation. Because patient at baseline without signs or symptoms of clinical decompensation, deemed appropriate for discharge. Results were relayed to patient who voiced understanding and were agreeable to outpatient management and follow up. I discussed my clinical impression with patient and answered all q uestions. At this time, the evidence for any other entities in the differential is insufficient to warrant any further testing or ED observation. This was explained as well. Advisory was given that persistent or worsening symptoms require further evaluation. I confirmed the understanding of this discussion. Manager Sign disclaimer Much of this encounter note is an electronic supervisor [employer] spoken language to printed text. Electronic [employer] of the spoken language may permit errors. Although I have reviewed the note, some errors may still exist. Critical Care Critical Care Time Critical Care Time: No
[2024-12-05] MEDS: DEXAMETHASONE 4MG TABLET 10 MG PO (16:10)
[2024-12-05] MEDS: IPRATROPIUM/ALBUTEROL 3 ML NEB 9 ML IH (16:11)
[2024-12-05] MEDS: DOXYCYCLINE HYCL 100 MG TABLET PO (16:11)
[2024-12-05 17:38] VITALS: BP 122/86; PULSE 88; RESP 18; TEMP 37.1; O2SAT 96
== END 2024-12-05 17:39 | disposition home or self-care (01) ==
PROVIDERS: Emergency Provider Emergency Medicine; PCP Nurse Practitioner Family
DX: J44.1 Chronic obstructive pulmonary disease with (acute) exacerbation (principal); F17.210 Nicotine dependence, cigarettes, uncomplicated; R09.81 Nasal congestion
CPT/HCPCS: 71046; 99283; J8540

== ENCOUNTER 2025-03-31 12:35 | Emergency (ER) | payer OTHER, SELFPAY ==
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
[2025-03-31 13:03] VITALS: BP 149/74; PULSE 88; RESP 16; TEMP 36.8; O2SAT 95; BMI 38.4
[2025-03-31 13:36] VITALS: BP 136/68; PULSE 75; RESP 17; TEMP 36.6; O2SAT 96
== END 2025-03-31 13:38 | disposition home or self-care (01) ==
PROVIDERS: Emergency Provider Student in an Organized Health Care Education/Training Program; PCP Nurse Practitioner Family
DX: M54.50 Low back pain, unspecified (principal); V49.40XA Driver injured in collision with unspecified motor vehicles in traffic accident, initial encounter
CPT/HCPCS: 99283

== ENCOUNTER 2025-06-17 13:58 | Outpatient (CLI) | payer OTHER, SELFPAY ==
[2025-06-17 19:11] LABS: Hematocrit 42.7 % (37.0-47.0); Hemoglobin 13.5 g/dL (12.2-16.2); Immature Granulocytes % 0.2 %; Mean Corpuscular HGB Conc 31.6 g/dL (31.8-35.4); Mean Corpuscular Hemoglobin 29.3 pg (27.0-31.2); Mean Corpuscular Volume 92.6 fl (81-99); Nucleated Red Blood Cells % 0 %; Platelet Count 382 K/mm3 (142-424); Red Blood Count 4.61 M/mm3 (4.20-5.40); Red Cell Distribution Width-SD 47.3 fL; White Blood Count 9.2 K/mm3 (4.8-10.8)
[2025-06-17 19:28] LABS: Albumin Level 4.5 g/dl (3.5-5.0); Chloride 101 mmol/L (98-107)
[2025-06-17 19:29] LABS: Potassium 4.6 mmoL/L (3.5-5.1); Sodium 143 mmol/L (136-145)
[2025-06-17 19:31] LABS: Alanine Aminotransferase 23 U/L (12-78); Anion Gap 17.6 mEq/L (5-15); Aspartate Amino Transferase 28 U/L (14-36); Blood Urea Nitrogen 13 mg/dl (7-17); Carbon Dioxide 29 mmol/L (22.0-30.0); Creatinine,Serum 0.90 mg/dl (0.52-1.04); Estimated Glomerular Filt Rate 64 ml/min (>60); GFR (African American) 78 ML/MIN (>60)
[2025-06-17 19:32] LABS: Albumin/Globulin Ratio 1.6 (1.1-1.8); Alkaline Phosphatase 120 U/L (38-126); Bilirubin,Total 0.3 mg/dl (0.2-1.3); Calcium 9.3 mg/dl (8.4-10.2); Cholesterol 226 mg/dl (140-200); Globulin 2.8 g/dL (1.3-3.2); Glucose 112 mg/dl (74-100); HDL Cholesterol 56 mg/dl (40-60); Total Protein,Serum 7.3 g/dl (6.3-8.2); Triglycerides 83 mg/dl (30-150)
[2025-06-17 20:04] LABS: Thyroid Stimulating Hormone 1.80 uIU/mL (0.465-4.68)
== END 2025-06-17 23:59 ==
LOC: LAB.DROPOF 06-18 09:40
PROVIDERS: PCP Nurse Practitioner Family; Visit Provider Nurse Practitioner Family
DX: M54.50 Low back pain, unspecified (principal); E66.9 Obesity, unspecified
CPT/HCPCS: 80053; 80061; 84443; 85025

== ENCOUNTER 2025-06-23 15:57 | Outpatient (CLI) | payer OTHER, SELFPAY ==
--- NOTE | 2025-06-23 16:02 | XR_ITS ---
PROCEDURE INFORMATION: Exam: XR Lumbosacral Spine Exam date and time: 06/23/2025 4:03 PM Age: 60 years old Clinical indication: Low back pain; Additional info: Lbp TECHNIQUE: Imaging protocol: Radiologic exam of the lumbosacral spine. Views: 2 or 3 views. COMPARISON: CT LUMBAR SPINE WO CON 01/17/2021 11:24 PM FINDINGS: Bones/joints: There are moderate degenerative changes of the sacroiliac joints. Mild disc space narrowing at L1-L2. Moderate disc space narrowing at L2-L3. Mild disc space narrowing at L3-L4. Moderate disc space narrowing at L4-L5. Severe disc space narrowing at L5-S1. The spinal canal is patent. Facet joints have marked degenerative narrowing and sclerosis. Small multilevel anterior osteophytes. No acutely displaced fractures. No joint dislocation. No aggressive osseous lesions. Soft tissues: No acute soft tissue findings. Organs: Surgical clips are present in the right upper quadrant, consistent with previous cholecystectomy. Vasculature: Severe diffuse calcific atherosclerosis of the aorta. IMPRESSION: 1. No acute skeletal pathology. 2. Moderate degenerative changes.
== END 2025-06-23 23:59 | disposition home or self-care (01) ==
LOC: RAD 15:59
PROVIDERS: PCP Nurse Practitioner Family; Visit Provider Nurse Practitioner Family
DX: M47.26 Other spondylosis with radiculopathy, lumbar region (principal)
CPT/HCPCS: 72100